=== PATIENT | female | born 1960 | race African-American/Black ===

== ENCOUNTER → 2016-12-08 | Outpatient (CLI) | payer OTHER, BC ==
--- NOTE | 2016-12-08 13:12 | KCIC ---
Bilateral digital screening mammograms with CAD: HISTORY Routine screening COMPARISON Comparison is made to previous examinations dated 12/09/2015 and 11/29/2014. FINDINGS Breast density category C. The skin and nipples show no abnormalities. No abnormal lymph nodes are seen in the axilla. The breast parenchyma shows heterogeneous density. There appears to be a nodular parenchymal density superiorly in the left breast on oblique view. Further evaluation with coned compression views and ultrasound is recommended. There are no other dominant masses, suspicious calcifications or architectural distortions. IMPRESSION And new nodular parenchymal density in superior left breast on oblique view. Recommend further evaluation with additional views and ultrasound. This study was interpreted with the benefit of Computerized Aided Detection (CAD). Mammography is not 100% sensitive in detecting breast cancer. Therefore, a self breast exam and a clinical breast exam are very important. A negative mammogram does not negate a clinically suspicious finding and should not result in a delay in biopsying a clinically suspicious abnormality. BI-RADS category 0: Incomplete. Additional imaging is recommended. This patient's information has been entered into a reminder system for the patient to be notified with the results of this examination and a target date for her next mammograms. Electronically signed by: Juani Rowe MD (Dec 08, 2016 13:10:29)
== END | disposition home or self-care (01) ==
LOC: KCIC MAMMO 11:12
PROVIDERS: ATTEND Family Medicine
DX: Z12.31 Encounter for screening mammogram for malignant neoplasm of breast (principal)
CPT/HCPCS: G0202; 77067

== ENCOUNTER → 2016-12-15 | Outpatient (CLI) | payer OTHER, BC ==
--- NOTE | 2016-12-15 13:57 | KCIC ---
Diagnostic digital mammograms left breast: Reason for examination: Density on screening mammogram. Comparison is made to mammographic screening dated 12/08/2016. Coned compression view of the left breast was performed with attention to the superior breast. There is heterogeneously dense fibroglandular tissue. The area of nodularity is less apparent than on screening but may be obscured by the heterogeneous parenchymal density. Further evaluation with ultrasound will follow. Impression: Heterogeneously dense fibroglandular tissue with the nodularity seen on screening appearing to be less defined. Ultrasound will follow. BI-RADS category 0: Incomplete. Ultrasound to follow. Left breast ultrasound: Ultrasound examination of the superior breast was performed. There is an area of parenchymal scarring at the 10 o'clock position 8 centimeters from the nipple from previous breast biopsy. This probably corresponds to the area of mammographic concern. There is also however a small 6 millimeter hypoechoic lesion at the 2 o'clock position 7 centimeters from the nipple which lies in parallel orientation and may represent a complicated cyst or fibroadenoma. No other focal lesions are seen. No abnormal lymph nodes are evident in the axilla. Impression: Previous biopsy scar at the 10 o'clock position. Small hypoechoic nodule probably representing a complicated cyst or fibroadenoma in the 2 o'clock position. Recommend 6 month followup ultrasound. BI-RADS category 3: Probably benign. This patient's information has been entered into a reminder system for the patient to be notified with the results of this examination and a target date for her next mammograms. Electronically signed by: Juani Rowe MD (Dec 15, 2016 13:56:05)
== END | disposition home or self-care (01) ==
LOC: KCIC 09:04
PROVIDERS: ATTEND Family Medicine
DX: N64.89 Other specified disorders of breast (principal)
CPT/HCPCS: 76641; G0206; 77065

== ENCOUNTER → 2019-09-11 | Outpatient (CLI) | payer OTHER, BC ==
--- NOTE | 2019-09-11 16:45 | KCIC ---
Bilateral digital screening mammograms: Reason for examination: Routine screening. Comparison is made to previous studies dated 12/08/2016 and 12/09/2015. Interpretation was made with the benefit of CAD. The skin and nipples show no abnormalities. No abnormal axillary lymph nodes are seen. The breast parenchyma is extremely dense. (Breast density: Category D.) There are small nodular asymmetries which are stable. There are no new dominant masses, suspicious calcifications or architectural distortion. A few benign calcifications are present. Impression: No evidence of malignancy. Recommend routine screening. Your patient's mammogram demonstrates that she has dense breast tissue (breast density category C or D), which could hide abnormalities, and if she has other risk factors for breast cancer that have been identified, she might benefit from supplemental screening tests that may be suggested by you as her ordering physician. Dense breast tissue, in and of itself, is a relatively common condition. Therefore, this information is not provided to cause undue concern, but rather to raise your awareness and to promote discussion with your patient regarding the presence of other risk factors, in addition to dense breast tissue. Your patient's mammography results will be sent to her. BI-RAD Category 2: Benign. "Our facility is accredited by the [employer] Mammography [employer]." This patient's information has been entered into a reminder system for the patient to be notified with the results of her examination and a target date for the next mammogram. Electronically signed by: Nneka Rowe MD (09/11/2019 4:42 PM) [id number]
== END | disposition home or self-care (01) ==
LOC: KCIC MAMMO 12:31
PROVIDERS: ATTEND Family Medicine
DX: Z12.31 Encounter for screening mammogram for malignant neoplasm of breast (principal); N64.89 Other specified disorders of breast
CPT/HCPCS: 77067